=== PATIENT | female | born 1970 | race Caucasian/White ===

== ENCOUNTER → 2016-03-21 | Outpatient (CLI) | payer OTHER ==
[~2016-03-21] MED LIST: BENADRYL25 MG PO; CALCIUM 600 +1 EAC1 PO; CENTRUM SILVER1 EAC2 PO; GARLIC1 EACH PO; GINSENG100 MG PO; GLUCOSAMINE HC500 MG PO; IRON325 PO; PRILOSEC 20 MG20 MG PO; SPECIAL C 5001 EACH PO; UNISOM25 MG PO; VOL-CARE RX TA1 EACH PO; ZOLOFT50 MG PO
== END ==
LOC: RAD 09:41
DX: M54.2 Cervicalgia (principal); M77.8 Other enthesopathies, not elsewhere classified